=== PATIENT | female | born 1975 | race Caucasian/White ===

== ENCOUNTER 2025-05-15 07:59 | Emergency (ER) | payer SELFPAY ==
[2025-05-15 08:06] VITALS: BP 113/98; PULSE 96; RESP 18; TEMP 36.9; O2SAT 100
--- NOTE | 2025-05-15 08:32 | ED.GENADULT ---
HPI - General Adult General Chief complaint: Dental/Oral Stated complaint: dental pain Time Seen by Provider: 05/15/25 08:08 History of Present Illness HPI narrative: Patient 49-year-old female presents emergency department chief complaint of dental pain. Patient reports been having increasing pain for the last 24 hours reports she has history of multiple dental abscesses reports that she has an appointment with dentist in 2 weeks the patient denies fever reports that she feels though she needs to be back on antibiotics. Patient denies trismus denies shortness of breath Related Data Allergies Allergy/AdvReac Type Severity Reaction Status Date / Time Penicillins Allergy Mild Verified 12/25/08 14:38 sumatriptan Allergy Mild severe Verified 12/25/08 14:38 headaches Review of Systems Review of Systems: A 10 system review of systems was completed on the patient and is negative except for what is stated in the HPI. Nursing and ancillary documentation was reviewed. Exam Narrative: GENERAL: Well-appearing, well-nourished, and in no acute distress. HEAD: Normocephalic, atraumatic. EYES: PERRLA and EOMI. ENT: Nares clear, no rhinorrhea or epistaxis. Mucous membranes moist. Multiple dental caries NECK: Supple. CHEST: Clear to auscultation. No respiratory distress. HEART: Regular rate and rhythm. No murmur heard. Normal peripheral pulses. ABDOMEN: Soft, nontender, nondistended, normal active bowel sounds. EXTREMITIES: Normal range of motion. No edema. SKIN: Warm, dry, no rash. NEURO: No focal deficits. Alert and oriented x3. PSYCH: Normal mood and affect. Course Vital Signs Vital signs: Vital Signs Temperature 36.9 C 05/15/25 08:06 Pulse Rate 96 05/15/25 08:06 Respiratory Rate 18 05/15/25 08:06 Blood Pressure 113/98 H 05/15/25 08:06 Pulse Oximetry 100 05/15/25 08:06 Temperature 36.9 C 05/15/25 08:06 Pulse Rate 96 05/15/25 08:06 Respiratory Rate 18 05/15/25 08:06 Blood Pressure 113/98 H 05/15/25 08:06 Pulse Oximetry 100 05/15/25 08:06 Medical Decision Making [facility] Narrative Medical decision making narrative: Patient shows no signs of trench mouth and no evidence of Rigoberto's angina patient was started on clindamycin as she has a penicillin allergy patient was given additional dose of pain medication in the emergency department Vital Signs Vital Signs: Vital Signs Temperature 36.9 C 05/15/25 08:06 Pulse Rate 96 05/15/25 08:06 Respiratory Rate 18 05/15/25 08:06 Blood Pressure 113/98 H 05/15/25 08:06 Pulse Oximetry 100 05/15/25 08:06 Temperature 36.9 C 05/15/25 08:06 Pulse Rate 96 05/15/25 08:06 Respiratory Rate 18 05/15/25 08:06 Blood Pressure 113/98 H 05/15/25 08:06 Pulse Oximetry 100 05/15/25 08:06 Discharge Plan Discharge Clinical Impression: Dental abscess Patient Disposition: Home Condition: Stable Instructions: Antibiotic Form, Dental Abscess (ED) Additional Instructions: Please follow-up with dentist as soon as possible Patient Language: Greenlandic Prescriptions: New clindamycin HCl [Cleocin HCl] 300 mg capsule 300 mg PO Q6H 10 Days Qty: 40 0RF Follow-up/Referrals: PHYSICIAN,REFRIGERATION ENGINE OPERATOR [Primary Care Provider, Internal Medicine] Blane Armendariz MD [Physician, Family Practice] Time of Disposition: 08:36
[2025-05-15] MEDS: HYDROcodone/acetaminophen (*CRX) 5-325 MG TABLET 1 TAB PO (08:41)
[2025-05-15] MEDS: CLINDAMYCIN HCL 150 MG CAP 300 MG PO (08:41)
--- OUTSIDE RECORDS SUMMARY | 2025-05-15 08:50 | XMS_ITS | Clinical Summary ---
Author Organization [facility] Address [address] [place] [id number] Care Team Providers Care Sound Person Name Role Phone Unavailable Primary Care Provider Unavailabl e Source Comments [facility],non-owned Affiliates and Associated Physician Practices is amultiple site organization consisting of ambulatory clinics and hospital sitesin [place], [place], [place] and [place]. This disclosure is being madepursuant to the Care Everywhere program and may not contain all information available regarding this patient. Last updated 18.[facility] Allergies Active Allergy Reactions Criticality Noted Date Comments Sumatriptan Anaphylaxis High 02/04/2021 Medications * Be aware that medications may not be up to date on this document. Alwaysverify current medications with the patient. No known medications Active Problems No known active problems Immunizations Immunization Administration Dates Next Due HEP A VACCINE, ADULT 07/09/2019,05/03/2017 Social History Tobacco Use Types Packs/Day Years Used Date Smoking Tobacco: Every Day Cigarettes Smokeless Tobacco: Never Tobacco Cessation:Ready to Q uit: No; Counseling Given: Yes Alcohol Use Standard Drinks/Week Comments Not Currently 0 (1 standard drink = 0.6 oz pur e alcohol) PHQ-2 Answer Date Recorded PHQ2 TOTAL SCORE 0 02/04/2021 Comments No Sex and Gender Information Value Date Recorded Sex Assigned at Not on file Legal Sex Female 1:42 PM [employer] Gender Identity Not on file Sexual Orientation Not on file Last Filed Vital Signs Vital Sign Reading Time Taken Comments Blood Pressure 130/78 02/04/2021 8:36 AM CDT Pulse 93 02/04/2021 8:36 AM CDT Temperature 36.5 C (97.7 F) 02/04/2021 8:36 AM CDT Respiratory Rate 20 02/04/2021 8:36 AM CDT Oxygen Saturation 99% 02/04/2021 8:36 AM CDT Inhaled Oxygen Concentration - - Weight 81.4 kg (179 lb 6.4 oz) 02/04/2021 8:36 A M CDT Height 165.1 cm (5' 5) 02/04/2021 8:36 AM CDT Body Mass Index 29.85 02/04/2021 8:36 AM CDT Plan of Treatment Health Maintenance Due Date Last Done Comments COLOGUARD (AGES 45-75) - COL ON CA SCREENING 1976 COLON MONITORING 1976 COLONOSCOPY - COLON CA SCREENING 1976 CT COLONOGRAPHY - COLON CA SCREENING 1976 Colorectal Cancer Screening 1976 FIT - COLON CA SCREENING 1976 FLEX SIG - COLON CA SCREENING 1976 LIPID TESTING 1976 MAMMOGRAM 1976 HIV SCREENING 1991 HEPATITIS C SCREENING 09/12/1994 DTAP/TDAP/TD VACCINES (1 - Tdap) 1995 HEPATITIS B VACCINE (1 of 3 - 19+ 3-dose series) 1995 SCREENING FOR DIABETES 02/04/2021 DEPRESSION SCREENING 09/12/2024 COVID-19 VACCINE (1 - 2023-2 5 season) 2025 INFLUENZA VACCINE (#1) 2025 ZOSTER VACCINE (1 of 2) 2026 HIB VACCINE Aged Out No longer eligi ble based on patient's age to complete this topic HPV VACCINE Aged Out No longer eligi ble based on patient's age to complete this topic MENINGOCOCCAL (Group B) VACC INE SHARED DECISION-MAKING Aged Out No longer eligibl e based on patient's age to complete this topic MENINGOCOCCAL GROUPS A/C/Y/W VACCINE Aged Out No longer eligible b ased on patient's age to complete this topic PNEUMOCOCCAL VACCINE Aged Out No long er eligible based on patient's age to complete this topic Insurance SELF PAY NO INSURANCE Member Subscriber Plan / Payer (Ef fective for All Dates) Name:Antonieta Pearce Member ID:Not on file Relation to Subscriber:Self Name:Antonieta Pearce Subscriber ID:Not on file Payer ID:Not on file Group ID:Not on file Type:Self Pay Address: [place], [place]
== END 2025-05-15 08:47 | disposition home or self-care (01) ==
PROVIDERS: Emergency Provider Emergency Medicine
DX: K04.7 Periapical abscess without sinus (principal)
CPT/HCPCS: 99283; A9270